=== PATIENT | male | born 1990 | race Hispanic/Latino ===

== ENCOUNTER 2023-10-09 18:02 | Emergency (ER) | payer OTHER ==
[~2023-10-09] VITALS: Ht 170.2 cm; Wt 122.0 kg
[2023-10-09] MEDS ORDERED: MORPHINE 2 MG SYG IVP ONE (18:30)
[2023-10-09] MEDS ORDERED: ONDANSETRON 4MG INJ IVP ONE (18:30)
[2023-10-09] MEDS ORDERED: 0.9%NACL 1000ML 1,000 ML IV ONE ×3 (18:30→21:30)
[2023-10-09 18:42] LABS: APPEARANCE,URINE CLEAR (CLEAR); BILIRUBIN,URINE NEGATIVE (NEGATIVE); COLOR,URINE YELLOW (YELLOW); GLUCOSE, URINE (UA) NEGATIVE (NEGATIVE); KETONES,URINE 40 mg/dL (NEGATIVE); LEUKOCYTE ESTERASE ,URINE NEGATIVE Leu/uL (NEGATIVE); NITRATE,URINE NEGATIVE (NEGATIVE); OCCULT BLOOD,URINE NEGATIVE (NEGATIVE); PH,URINE 5.5 (5.0-8.0); PROTEIN,URINE 30 mg/dL (NEGATIVE); UROBILINOGEN,URINE 0.2 mg/dL (0.2-1.0)
[2023-10-09 18:43] LABS: ADD UA MICROSCOPIC YES
[2023-10-09 18:44] LABS: MUCUS,URINE RARE LPF (None Seen); RBC,URINE 0-1 /HPF (0-1); SQUAMOUS EPITHELIAL CELL,UR RARE /HPF (0-2); WBC,URINE 0-1 /HPF (0-1)
[2023-10-09] MEDS ORDERED: ZOSYN 3.375GM +NS 50ML IV SCH (19:00)
[2023-10-09] MEDS ORDERED: HYOSCYAMINE SULFATE 0.125 MG TAB.SUBL SL ONE (20:00)
[2023-10-09 20:22] LABS: BASOPHILS # (AUTO) 0.06 K/uL (0.00-0.20); BASOPHILS % (AUTO) 0.3 % (0.0-5.0); EOSINOPHILS # (AUTO) 0.21 K/uL (0.00-0.70); EOSINOPHILS % (AUTO) 1.2 % (0.0-8.0); HEMATOCRIT 53.8 % (42-54); LYMPHOCYTES # (AUTO) 0.8 K/uL (1.0-4.8); LYMPHOCYTES % (AUTO) 4.4 % (21.0-51.0); MEAN CORPUSCULAR HEMOGLOBIN 27.8 pg (27.0-33.0); MEAN CORPUSCULAR HGB CONC 33.6 g/dL (32.0-36.0); MEAN CORPUSCULAR VOLUME 82.5 fL (79-99); MONOCYTES # (AUTO) 0.7 K/uL (0.1-1.0); MONOCYTES % (AUTO) 3.8 % (3.0-13.0); NEUTROPHILS # (AUTO) 15.4 K/uL (1.8-7.7); NEUTROPHILS % (AUTO) 89.7 % (40.0-77.0); PLATELET COUNT (AUTO) 291 K/uL (130-400); RED BLOOD CELL COUNT(AUTO) 6.52 MIL/uL (4.50-6.20); RED CELL DISTRIBUTION WIDTH 14.8 % (11.0-15.5); WHITE BLOOD COUNT (AUTO) 17.2 K/uL (4.8-10.8)
[2023-10-09 20:54] LABS: CREATININE 1.2 mg/dL (0.5-1.5); POTASSIUM 4.1 mmol/L (3.5-5.1)
[2023-10-09 20:59] LABS: ALBUMIN 4.5 g/dL (3.5-5.0); BILIRUBIN,TOTAL 1.3 mg/dL (0.2-1.0); TOTAL PROTEIN, SERUM 8.4 g/dL (6.0-8.3)
[2023-10-09] MEDS ORDERED: ONDA4TAB10 PO (21:19)
[2023-10-09] MEDS ORDERED: CIPR-279 PO (21:19)
[2023-10-09] MEDS ORDERED: METR-172 PO (21:19)
[2023-10-09] MEDS ORDERED: HYOS0.124 SL (21:19)
[2023-10-09] MEDS ORDERED: METRONIDAZOLE 500 MG TABLET PO SCH (21:30)
[2023-10-09 21:46] VITALS: BP 142/65; PULSE 82; RESP 20; O2SAT 99
== END 2023-10-09 22:43 | disposition home or self-care (01) ==
LOC: EDH 18:02
DX: K52.9 Noninfective gastroenteritis and colitis, unspecified (principal)
CPT/HCPCS: 99285; 74176; 96365; 96361; 96375; 83735; 80053; 83690; 85025; 87046; 83605; 81001; 36415; 83630; J2270; J7030; J2405; J2543

== ENCOUNTER 2024-01-14 20:32 | Emergency (ER) | payer OTHER ==
[~2024-01-14] VITALS: Ht 170.2 cm; Wt 119.7 kg
[~2024-01-14 20:32] MED LIST: CIPR-279 PO; HYOS0.124 SL; METR-172 PO; ONDA4TAB10 PO
[2024-01-15 02:02] VITALS: BP 123/75; PULSE 57; RESP 17; O2SAT 99
== END 2024-01-15 03:11 | disposition home or self-care (01) ==
LOC: EDH 20:32
DX: S16.1XXA Strain of muscle, fascia and tendon at neck level, initial encounter (principal); S06.0XAA Concussion with loss of consciousness status unknown, initial encounter; W22.8XXA Striking against or struck by other objects, initial encounter; Y93.89 Activity, other specified; Y92.89 Other specified places as the place of occurrence of the external cause; Y99.8 Other external cause status
CPT/HCPCS: 70450; 72125